=== PATIENT | male | born 1970 | race Two or more races ===

== ENCOUNTER 2020-10-18 11:28 | Day surgery (SDC) | payer OTHER ==
[~2020-10-18] VITALS: Ht 180.3 cm; Wt 59.0 kg
[2020-10-18 16:00] VITALS: BP 124/76
[2020-10-18] MEDS ORDERED: FENTANYL PF 250 MCG/5ML ONE (17:17)
[2020-10-18] MEDS ORDERED: MIDAZOLAM 1 MG/ML, 2ML ONE (17:17)
[2020-10-18] MEDS ORDERED: LIDOCAINE/PF 1%, 30ML ONE (18:20)
[2020-10-18] MEDS ORDERED: EPINEPHRINE 1 MG/ML, 1ML ONE (18:20)
[2020-10-18] MEDS ORDERED: OXYMETAZOLINE NASAL SPRAY 0.05%,30ML ONE (18:20)
[2020-10-18] MEDS ORDERED: DEXAMETHASONE 4 MG/ML, 5ML ONE (18:41)
[2020-10-18] MEDS ORDERED: ONDANSETRON 2MG/ML, 2ML ONE ×2 (18:41→22:06)
[2020-10-18] MEDS ORDERED: CEFAZOLIN 1,000 MG ONE ×2 (18:41→22:06)
[2020-10-18] MEDS ORDERED: FENTANYL PF 100 MCG/2ML ONE ×2 (20:47→22:33)
[2020-10-18] MEDS ORDERED: GLYCOPYRROLATE 0.2MG/1ML, 5ML ONE (22:06)
[2020-10-18] MEDS ORDERED: KETOROLAC 30 MG/1 ML ONE (22:06)
[2020-10-18] MEDS ORDERED: ROCURONIUM 10MG/ML,5ML ONE (22:06)
[2020-10-18] MEDS ORDERED: SUCCINYLCHOLINE 20 MG/ML, 10ML ONE (22:06)
[2020-10-18] MEDS ORDERED: NEOSTIGMINE 1 MG/ML, 10ML ONE (22:06)
[2020-10-18] MEDS ORDERED: PROPOFOL 10 MG/ML, 20ML ONE (22:06)
[2020-10-18] MEDS ORDERED: BACITRACIN ZINC OINT 500U/GM, 0.9 GM ONE (22:15)
[2020-10-18] MEDS ORDERED: MORPHINE SULFATE 4 MG/ML, 1ML ONE (23:39)
[2020-10-18] MEDS: morphine SULFATE 10 MG/ML, 1ML IVPush PRN ×2 (23:43→23:57)
[2020-10-19] MEDS ORDERED: ONDANSETRON 2MG/ML, 2ML IVPush PRN
[2020-10-19] MEDS ORDERED: PROMETHAZINE 25 MG/ML, 1ML IVPush PRN
[2020-10-19] MEDS ORDERED: OXYcodone 5 MG/5 ML ORAL.SOL UDC PO PRN
[2020-10-19] MEDS ORDERED: MEPERIDINE/PF 25MG/0.5ML IVPush PRN
[2020-10-19] MEDS ORDERED: ACETAMINOPHEN 325 MG TABLET PO PRN
[2020-10-19] MEDS ORDERED: FENTANYL PF 100 MCG/2ML IV PRN
[2020-10-19 00:15] VITALS: BP 101/59
[2020-10-19] MEDS ORDERED: OXYcodone IR 5MG TABLET ONE (00:53)
[2020-10-19] MEDS ORDERED: OXYcodone IR 5MG TABLET PO PRN (01:30)
[2020-10-19] MEDS ORDERED: morphine SULFATE 10 MG/ML, 1ML IV PRN (01:30)
== END 2020-10-19 02:00 | disposition home or self-care (01) ==
LOC: SDC 11:28 → 4NE 17:00 → SDC 10-19 02:00
PROVIDERS: ATTEND Otolaryngology Facial Plastic Surgery
DX: S02.66XA Fracture of symphysis of mandible, initial encounter for closed fracture (principal); Z20.828 Contact with and (suspected) exposure to other viral communicable diseases; Z79.899 Other long term (current) drug therapy; W00.2XXA Other fall from one level to another due to ice and snow, initial encounter; Y93.89 Activity, other specified; Y92.480 Sidewalk as the place of occurrence of the external cause; Y99.8 Other external cause status
CPT/HCPCS: 21461; 87635; C1713; J0171; J0330; J0690; J1100; J1885; J2250; J2270; J2405; J2704; J3010; G0378; J2710